=== PATIENT | male | born 1990 | race Caucasian/White ===

== ENCOUNTER 2016-06-22 13:20 | Observation (INO) | payer MEDICAID, OTHER ==
[~2016-06-22] VITALS: Ht 170.2 cm; Wt 64.0 kg
[2016-06-22] VITALS (15 sets, daily range): BP systolic 107–127; BP diastolic 44–80; PULSE 62–96; RESP 10–20; TEMP 98; Ht 170.2 cm; Wt 64.0 kg
--- NOTE | 2016-06-22 14:22 | ERA ---
ER Documentation Chief Complaint Date/Time DATE: 06/22/16 TIME: 14:21 Chief Complaint Left testicular pain HPI The patient is a 25-year-old male, presenting to the ER because of left testicular pain that began about 9 AM, associated with nausea, vomiting. He then masturbated around 11 AM hoping it would get better but it did not. He then went to the urgent care where he was treated with Rocephin IM for possible infection. He denies similar symptoms previously, headache, fever, chills, neck pain, chest pain, abdominal pain, diarrhea, constipation. He does not smoke nor drink Past medical/surgical history: None ROS All systems reviewed and are negative except as per history of present illness. Medications Home Meds No Active Prescriptions or Reported Meds Allergies Allergies: Coded Allergies: No Known Allergy (Unverified , 06/22/16) Physical Exam Vitals Vital Signs Date Time Temp Pulse Resp B/P Pulse Ox O2 Delivery O2 Flow Rate FiO2 06/22/16 17:00 98.0 60 20 115/69 100 Room Air 06/22/16 13:24 97.9 74 24 132/81 100 Physical Exam Const: No acute distress. Head: Atraumatic. Eyes: Normal Conjunctiva. ENT: Normal External Ears, Nose and Mouth. Neck: Full range of motion. No meningismus. Resp: Clear to auscultation bilaterally. Cardio: Regular rate and rhythm, no murmurs. Abd: Soft, non distended, normal bowel sounds, non tender. Skin: No petechiae or rashes. Back: No midline or flank tenderness. Ext: No cyanosis, or edema. Neur: Awake and alert. No focal deficit Psych: Normal Mood and Affect. Genitourinary: Left testicle is with mild to moderate tenderness, no palpable mass Result Diagram: 06/22/16 1635 06/22/16 1635 Results 24 hrs Laboratory Tests Test 06/22/16 16:35 White Blood Count 9.310^3/ul Red Blood Count 5.2710^6/ul Hemoglobin 14.3g/dl Hematocrit 44.7% Mean Corpuscular Volume 84.8fl Mean Corpuscular Hemoglobin 27.1pg Mean Corpuscular Hemoglobin Concent 32.0g/dl Red Cell Distribution Width 12.0% Platelet Count 92240^3/UL Mean Platelet Volume 9.6fl Neutrophils % 91.2% Lymphocytes % 6.5% Monocytes % 1.8% Eosinophils % 0.0% Basophils % 0.3% Nucleated Red Blood Cells % 0.0/100WBC Neutrophils # 8.510^3/ul Lymphocytes # 0.610^3/ul Monocytes # 0.210^3/ul Eosinophils # 0.010^3/ul Basophils # 0.010^3/ul Nucleated Red Blood Cells # 0.010^3/ul Prothrombin Time 14.4Sec Prothrombin Time Ratio 1.1 INR International Normalized Ratio 1.12 Activated Partial Thromboplast Time 33.8Sec Sodium Level 141mmol/L Potassium Level 3.7mmol/L Chloride Level 103mmol/L Carbon Dioxide Level 25mmol/L Anion Gap 17 Blood Urea Nitrogen 10mg/dl Creatinine 0.91mg/dl Glucose Level 99mg/dl Calcium Level 9.0mg/dl Current Medications Medications (Trade) Dose Ordered Sig/Prateek Route PRN Reason Start Time Stop Time Status Last Admin Dose Admin Sodium Chloride (NS) 1,000 ml @ 1,000 mls/hr Q1H ONCE IV 06/22/16 14:30 06/22/16 15:29 DC 06/22/16 14:38 Morphine Sulfate (morphine) 4 mg ONCE STAT IV 06/22/16 14:27 06/22/16 14:29 DC 06/22/16 14:37 Ondansetron HCl (Zofran Inj) 4 mg ONCE STAT IV 06/22/16 14:27 06/22/16 14:29 DC 06/22/16 14:37 Procedures/[place] [id number] Radiology Main Line: [phone] DIAGNOSTIC IMAGING REPORT Patient: SUSHILA FERRARI : 1990 Age: 25 Sex: M MR #: [id number] DOS: 06/22/16 0000 Ordering MD: SHUN SOLIZ MD Location: E/R Room/Bed: PROCEDURE: XR Chest. CLINICAL INDICATION: Preoperative. TECHNIQUE: Single frontal view. COMPARISON: None. FINDINGS: The lungs are clear. The heart size is normal. There is no pleural effusion. There is no pneumothorax. IMPRESSION: 1. Normal chest radiograph. RPTAT: QQ .Dileep Morales MD, MD Date Time Electronically viewed and signed by .Dileep Morales MD, MD on 06/22/2016 16:29 .R/ CC: SHUN SOLIZ MD [place] [id number] Radiology Main Line: [phone] DIAGNOSTIC IMAGING REPORT Patient: SUSHILA FERRARI : 1990 Age: 25 Sex: M MR #: [id number] DOS: 06/22/16 0000 Ordering MD: SHUN SOLIZ MD Location: E/R Room/Bed: PROCEDURE: Scrotal ultrasound CLINICAL INDICATION: Left scrotal pain. Evaluate for left portion. TECHNIQUE: Scrotal ultrasound was performed in multiple obliquities. Mckinnon scale and color imaging was performed. Images were reviewed on high resolution PACS monitors. COMPARISON: None available FINDINGS: The testes are normal in size and echogenicity. There is normal flow in the right testis. No arterial wave forms can be seen in the left testis compatible with suspected left testicular torsion. Venous waveforms are seen on the left. No testicular mass or cyst is identified. There is a mild to moderate left hydrocele. There is no evidence of right hydrocele.. There is a 7 mm right epididymal cyst. The left epididymis is within normal limits. There is no evidence for a varicocele. IMPRESSION: 1. No arterial flow identified in the left testis compatible with suspected left testicular torsion. 2. Small right epididymal cyst. 3. Small to moderate left hydrocele. Call report: A call report was made to Dr. Soliz at approximately 03:35 p.m. on 06/22/2016. RPTAT: KK .Julio Pike MD, MD Date Time Electronically viewed and signed by .Julio Pike MD, MD on 2016 15:39 .B/ CC: SHUN SOLIZ MD EKG: Read by emergency physician Rate/Rhythm: Normal Sinus Rhythm 68 beats/min QRS, ST, T-waves: No ST elevation, no T inversion Impression: EKG MEDICAL MAKING DECISION: The patient is a 25-year-old male, presenting with acute left testicular torsion. He went treated with 1 L normal saline for clinical dehydration, morphine 4 mg IV for pain, Zofran formalin IV for nausea with good response. Consultation: I discussed the person with the radiologist at 3:40 PM Consultation: I discussed the patient with the on-call urologist Dr. Croft at 3:50 PM who was made aware of the patient condition, the ultrasound finding. He is coming to do the emergent surgical intervention Critical Care: Time: 35 minutes excluding all billable procedures. Treatments/Evaluations: Close monitoring and treatment of unstable vital signs, cardiorespiratory, and neurologic status, while maintaining tight balance of fluid, respiratory, and cardiac interventions. Departure Diagnosis: Primary Impression: Left testicular torsion Condition: Stable Comments I discussed the findings with the patient. I discussed the patient with the on- call hospitalist at 4 PM who was made aware of the lab, the treatment, the patient condition and my discussion with the urologist. The patient is admitted to medical surgery bed at 4:10 PM The patient's blood pressure was elevated (>120/80) but appears stable without evidence of hypertension emergency or urgency. The patient was counseled about the risks of hypertension and urged to pursue outpatient monitoring and therapy within a week with their primary care physician. SHUN SOLIZ MD June 22, 2016 14:22
[2016-06-22] MEDS ORDERED: morphine 4 MG/ML VIAL IV STA (14:27)
[2016-06-22] MEDS ORDERED: ONDANSETRON 4 MG INJ IV STA (14:27)
[2016-06-22] MEDS ORDERED: SOD CHLORIDE 0.9% 1,000 ML IV ONE (14:30)
--- NOTE | 2016-06-22 15:39 | RADRPT ---
PROCEDURE: Scrotal ultrasound CLINICAL INDICATION: Left scrotal pain. Evaluate for left portion. TECHNIQUE: Scrotal ultrasound was performed in multiple obliquities. Mckinnon scale and color imaging was performed. Images were reviewed on high resolution PACS monitors. COMPARISON: None available FINDINGS: The testes are normal in size and echogenicity. There is normal flow in the right testis. No arter ial wave forms can be seen in the left testis compatible with suspected left testicular torsion. [place] ous waveforms are seen on the left. No testicular mass or cyst is identified. There is a mild to mo derate left hydrocele. There is no evidence of right hydrocele.. There is a 7 mm right epididyma l cyst. The left epididymis is within normal limits. There is no evidence for a varicocele. IMPRESSION: 1. No arterial flow identified in the left testis compatible with suspected left testicular torsion . 2. Small right epididymal cyst. 3. Small to moderate left hydrocele. Call report: A call report was made to Dr. Wright at approximately 03:35 p.m. on 06/22/2016. RPTAT: KK .Julio Pike MD, MD Date Time Electronically viewed and signed by .Julio Pike MD, MD on 06/22/2016 15:39 .B/
--- NOTE | 2016-06-22 16:29 | RADRPT ---
PROCEDURE: XR Chest. CLINICAL INDICATION: Preoperative. TECHNIQUE: Single frontal view. COMPARISON: None. FINDINGS: The lungs are clear. The heart size is normal. There is no pleural effusion. There is no pneumothorax. IMPRESSION: 1. Normal chest radiograph. RPTAT: QQ .Dileep Morales MD, Date Time Electronically viewed and signed by .Dileep Morales MD, on 06/22/2016 16:29 .R/
[2016-06-22 16:38] LABS: ADD SCAN DIFF NO
[2016-06-22 16:41] LABS: BASOPHILS % 0.3 % (0.0-2.0); HEMATOCRIT 44.7 % (42.0-52.0); HEMOGLOBIN 14.3 g/dl (14.0-18.0); LYMPHOCYTES # 0.6 10^3/ul (0.8-2.9); LYMPHOCYTES % 6.5 % (15.0-51.0); MEAN CORPUSCULAR HEMOGLOBIN 27.1 pg (29.0-33.0); MEAN CORPUSCULAR VOLUME 84.8 fl (82.0-101.0); MEAN PLATELET VOLUME 9.6 fl (7.4-10.4); MONOCYTE # 0.2 10^3/ul (0.3-0.9); MONOCYTES % 1.8 % (0.0-11.0); NEUTROPHIL # 8.5 10^3/ul (1.6-7.5); NEUTROPHILS % 91.2 % (39.0-77.0); PLATELET COUNT 196 10^3/UL (140-415); RED BLOOD COUNT 5.27 10^6/ul (4.70-6.10); WHITE BLOOD COUNT 9.3 10^3/ul (4.8-10.8)
[2016-06-22 16:55] LABS: INR 1.12; PROTIME 14.4 Sec (12.2-14.2); PT RATIO 1.1
[2016-06-22 16:56] LABS: PARTIAL THROMBOPLASTIN TIME 33.8 Sec (25.0-35.0)
[2016-06-22] MEDS ORDERED: PROPOFOL 20 ML ONE (17:11)
[2016-06-22] MEDS ORDERED: LIDOCAINE 2% (SDV) 5 ML INJ ONE (17:12)
[2016-06-22] MEDS ORDERED: BUPIVACAINE 0.5% (SDV) 30 ML INJ ONE (17:40)
[2016-06-22 17:45] LABS: CREATININE 0.91 mg/dl (0.61-1.24); POTASSIUM 3.7 mmol/L (3.5-5.1)
[2016-06-22] MEDS ORDERED: DEXAMETHASONE 4 MG/ML 1 ML INJ ONE (17:49)
[2016-06-22] MEDS ORDERED: ROCURONIUM 50 MG INJ ONE (17:50)
[2016-06-22] MEDS ORDERED: ONDANSETRON 4 MG INJ ONE (17:50)
[2016-06-22] MEDS ORDERED: HYDROmorphONE 1 MG/ML SYG IV PRN (18:30)
[2016-06-22] MEDS ORDERED: ACETAMINOPHEN 325 MG TAB PO PRN (18:30)
[2016-06-22] MEDS ORDERED: HYDROmorphONE (0.2 MG/ML) 10ML SYG IV PRN ×3 (18:30)
[2016-06-22] MEDS ORDERED: ONDANSETRON 4 MG INJ IV PRN ×2 (18:30)
[2016-06-22] MEDS ORDERED: FENTAnyl 50 MCG/ML VIAL IV PRN ×3 (18:30)
[2016-06-22] MEDS ORDERED: EPHEDrine SULFATE 50 MG/5 ML SYG IV PRN (18:30)
[2016-06-22] MEDS ORDERED: MEPERIDINE 25 MG INJ IV PRN (18:30)
[2016-06-22] MEDS ORDERED: HYDROCODONE/APAP (5/325) TAB PO PRN (18:30)
[2016-06-22] MEDS ORDERED: morphine 2 MG INJ IV PRN (18:30)
[2016-06-22] MEDS ORDERED: LABETALOL HCL 20MG INJ IV PRN (18:30)
[2016-06-22] MEDS ORDERED: hydrALAzine 20 MG INJ IV PRN (18:30)
[2016-06-22] MEDS ORDERED: DOCUSATE SODIUM 100 MG CAP PO PRN (18:30)
[2016-06-22] MEDS ORDERED: DIPHENHYDRAMINE 50 MG INJ IV PRN (18:30)
[2016-06-22] MEDS ORDERED: NACL 0.9% 3 ML SYG IV SCH (18:30)
--- NOTE | 2016-06-22 19:32 | HP ---
DATE OF ADMISSION: 06/22/2016 TIME OF EVALUATION: 1800 hours. REASON FOR ADMISSION: Left testicular pain. CONSULTATIONS: Dr. Croft, Urology. HISTORY OF PRESENT ILLNESS: This is a 25-year-old male who denied any significant past medical history who came to the emergency room because of left testicular pain that began about 9:00 a.m. on 06/22/2016 with associated nausea and vomiting. The patient verbalized that he tried masturbating at 11 a.m., hoping that it could get better, but the pain was not getting better. He went to a local urgent care, where he was treated with Rocephin IM for possible infection. The patient was not getting better, hence he came to the emergency room. The patient denied any prior similar episodes. The patient denied any fevers or chills. He denied any penile secretions or injuries. In the emergency room, the patient underwent a testicular ultrasound that showed no arterial flow identified in the left testis compatible with suspected left testicular torsion, small right epididymal cyst and small to moderate left hydrocele. The patient was admitted to inpatient setting and urology consult was called. The patient underwent a left testicular surgery for correction of his left testicular torsion with no immediate postoperative complications. . PAST MEDICAL HISTORY: Denies. PAST SURGICAL HISTORY: Denies. HOME MEDICATIONS: None. ALLERGIES: NO KNOWN DRUG ALLERGIES. SOCIAL HISTORY: The patient denied any history of tobacco or alcohol use. Smokes marijuana in between. The patient works as a porn star. REVIEW OF SYSTEMS: Negative other than what is mentioned in history of present illness. PHYSICAL EXAMINATION: VITAL SIGNS: Temperature 98.0, pulse rate 60, respiratory rate 20, blood pressure 115/60, oxygen saturation was 100% on room air. GENERAL: This is well-built, well-nourished male patient lying in bed in no apparent distress. HEENT: Normocephalic and atraumatic. Conjunctivae clear. ENT: Nasal septum is midline. Oral mucosa is dry. NECK: Supple. No JVD noticed. RESPIRATORY: Bilaterally clear to auscultation. No adventitious breath sounds heard. No use of accessory muscles of respiration. CARDIAC: Regular rhythm and rate. No murmurs. GASTROINTESTINAL: Abdomen soft, nontender and nondistended. Bowel sounds positive in all 4 quadrants. GENITOURINARY: Circumcised penis. Left scrotal dressing with a scrotal support in place. EXTREMITIES: No cyanosis, no clubbing, no edema. Peripheral pulses palpable. NEUROLOGIC: The patient is awake, alert and oriented. Cranial nerves are grossly intact. LABORATORY AND DIAGNOSTIC DATA: WBC 9.3, hemoglobin 14.3, hematocrit 44.7, platelet count 196. Sodium 141, potassium 3.7, chloride 103, carbon dioxide 20 , anion gap 17, BUN 10, creatinine 0.91, glucose 99, calcium 9.0. PT 14.4, INR 1.12, APTT 33.8. Chest x-ray, normal chest radiograph. Testicular ultrasound. No arterial flow identified in the left testis compatible with suspected left testicular torsion. Small right epididymal cyst. Small to moderate left hydrocele. IMPRESSION: This is a 25-year-old male who came to the emergency room with a chief complaint of left testicular pain, who was found to have evidence of left testicular torsion, who underwent an emergent surgical repair with revision of testicular torsion, who will be admitted here for further treatment and evaluation. ASSESSMENT AND PLAN: 1. Left testicular torsion. Status post surgical repair. Continue pain control. Dressing changes as per urology. The patient will be resumed on a diet. Plan. The patient will be admitted to inpatient medical/surgical floor. The patient will be started on DVT prophylaxis. Chemical DVT prophylaxis will be avoided because of recent surgery. Activities will be as tolerated. The rest of the patient's management will be based on clinical course. The patient most probably requires at least 1 midnight's stay for better pain control before the patient can be discharged home. The case and management of this patient was fully discussed with Dr. Mendez. MARRY MENDEZ MD, AM/ZENY Conf#: [id number] DID#: [id number] MTDD
[2016-06-22] MEDS: FAMOTIDINE 20 MG TAB PO SCH (22:24)
--- NOTE | 2016-06-23 00:54 | OPR ---
DATE OF OPERATION: 06/22/2016 PREOPERATIVE DIAGNOSIS: Left testicular torsion. POSTOPERATIVE DIAGNOSIS: Left testicular torsion. OPERATION PERFORMED: Detorsion, left testicle with bilateral testicular fixation. SURGEON: Chava Croft MD OPERATIVE FINDINGS: The patient had a very long left spermatic cord. It appeared that he had parti ally detorsed the testicle, but it was still bluish. There was significant hydrocele around the chun ica. Right testicle is normal. DESCRIPTION OF PROCEDURE: Under general anesthesia, the patient was prepped and draped in the supin e position. A midline scrotal incision was made, carried down through skin, subcutaneous tissue. T he median raphe was then developed. The left scrotum was approached first. The layers of the tunic a were opened, and a large amount of hydrocele fluid was evacuated. The testicle was then detorsed. Appendix testis was then excised. Then 3-0 Prolene was placed at the superior and inferior pole a nd sutured on the medial side and sutured to the median raphe. Testicle was then brought back into its anatomical position. On the right side, a similar procedure was performed. The tunica was open ed. Two sutures of 3-0 Prolene were placed on the inferior and superior pole and sutured to the med chi raphe so that the testicle was fixed without any chance of further torsion. At this point, the dartos muscle was closed in a single layer of 4-0 Vicryl. Skin was closed with 5-0 chromic subcutic ular. Then 10 mL of 0.5% Marcaine was placed in each cord and into the subcutaneous tissue. The pa tient was awakened after a sterile dressing was placed and brought to the recovery room in stable co ndition. Dictated By: CHAVA CROFT MD RS/ZENY Conf#: [id number] DID#: [id number]
[2016-06-23 06:05] LABS: ADD SCAN DIFF NO
[2016-06-23 06:18] LABS: BASOPHILS % 0.1 % (0.0-2.0); HEMATOCRIT 42.8 % (42.0-52.0); HEMOGLOBIN 14.1 g/dl (14.0-18.0); LYMPHOCYTES # 1.1 10^3/ul (0.8-2.9); LYMPHOCYTES % 10.3 % (15.0-51.0); MEAN CORPUSCULAR HEMOGLOBIN 27.5 pg (29.0-33.0); MEAN CORPUSCULAR HGB CONC 32.9 g/dl (32.0-37.0); MEAN CORPUSCULAR VOLUME 83.4 fl (82.0-101.0); MEAN PLATELET VOLUME 9.7 fl (7.4-10.4); MONOCYTE # 0.5 10^3/ul (0.3-0.9); MONOCYTES % 4.4 % (0.0-11.0); NEUTROPHIL # 9.1 10^3/ul (1.6-7.5); NEUTROPHILS % 84.9 % (39.0-77.0); PLATELET COUNT 222 10^3/UL (140-415); RED BLOOD COUNT 5.13 10^6/ul (4.70-6.10); RED CELL DISTRIBUTION WIDTH 12.1 % (11.5-14.5); WHITE BLOOD COUNT 10.7 10^3/ul (4.8-10.8)
[2016-06-23 06:30] LABS: POTASSIUM 4.2 mmol/L (3.5-5.1)
[2016-06-23 06:33] LABS: CREATININE 0.97 mg/dl (0.61-1.24)
[2016-06-23 06:34] LABS: CALCIUM 8.7 mg/dl (8.4-10.2)
[2016-06-23 07:50] VITALS: BP 115/67; RESP 20
[2016-06-23 08:06] LABS: MAGNESIUM 1.9 mg/dl (1.7-2.5); PHOSPHORUS 4.8 mg/dl (2.5-4.9)
[2016-06-23] MEDS: FAMOTIDINE 20 MG TAB PO SCH (09:03)
--- NOTE | 2016-06-23 11:20 | PDOCDIS ---
Discharge Instructions DIAGNOSIS Discharge Diagnosis: Left testicular torsion. Status post detorsion. CONDITION Patient Condition: Stable HOME CARE INSTRUCTIONS: Diet Instructions: Regular ACTIVITY: Activity Restrictions: Slowly Increase Activity Rest between Activity No Sexual Activity FOLLOW UP/APPOINTMENTS Appointments Flavio Croft MD Specialty: Urology Office Address: [id number] [place] [id number] Office OTHER ORDERS: Other Orders: 1. Take pain medications as needed. 2. Regular diet as tolerated. 3. May shower in 2 days. Avoid sexual activity until cleared by the urologist. 4. Please call Dr. Croft for an appointment and see him within 1 week. 5. Use ice pack to the scrotum for pain relief. MARRY GUTIERREZ NP June 23, 2016 11:20
[2016-06-23] MEDS ORDERED: HYDR-3498 PO (11:22)
--- NOTE | 2016-06-23 12:04 | DS ---
DATE OF ADMISSION: 06/22/2016 DATE OF DISCHARGE: 06/23/2016 FINAL DIAGNOSIS: Left testicular torsion. Status post detorsion of the left testicle with bilateral testicular fixation. GLOBAL COORDINATOR: Dr. Flavio Croft, Urology. HOSPITAL COURSE: This is a 25-year-old male who denied any significant past medical history, who came to the emergency room because of left testicular pain that began at about 9:00 a.m. on 06/22/2016, with associated nausea and vomiting. The patient verbalized that he tried masturbating with no relieve of his pain. He went to a local urgent care where he was treated with intramuscular Rocephin for possible infection. He was not getting better and he came to the emergency room at [facility]. The patient underwent a testicular ultrasound that showed no arterial flow in the left testis, compatible with suspected left testicular torsion and a small right epididymal cyst and a small to moderate left hydrocele. Provided the patient's history of present illness and the diagnostic findings, a clinical decision was made to admit the patient in inpatient setting. A urology consult was called by the ER physician. The patient was emergently taken to the OR and the patient underwent a detorsion of the left testicle with bilateral testicular fixation. The patient had no immediate postoperative complications. The patient was transferred to medical/surgical floor. The patient was started on a regular diet. The patient was provided with adequate pain control. He was maintained on antiemetics for any nausea or vomiting. The patient progressed well postoperatively. The patient needed minimal analgesics. The patient was cleared by urology to be discharged home. The patient has no other medical problems and the patient is a healthy individual. DISCHARGE DISPOSITION/PLAN: The patient will be discharged home today. The patient was instructed to take pain medications as needed. The patient was instructed to take a regular diet as tolerated. He was instructed that he may shower in 2 days, but avoid any sexual activity until cleared by the urologist. The patient was instructed to call Dr. Croft for an appointment and see him within 1 week. The patient was instructed to use ice pack to the scrotum for pain relief. The patient verbalized understanding of his discharge instructions. CONDITION AT DISCHARGE: Stable. DISCHARGE MEDICATIONS: [place] 5/325 one tablet p.o. q.6h. p.r.n. pain (#14 tablets). PERTINENT LABORATORY AND DIAGNOSTIC DATA AND PROCEDURES: 1. Detorsion of the left testicle with bilateral testicular fixation on 2016. 2. Testicular ultrasound on 06/22/2016. No arterial flow identified in the left testis, compatible with suspected left testicular torsion. Small right epididymal cyst. Small to moderate left hydrocele. 3. Chest x-ray. Normal chest radiograph. 4. Latest CBC: WBC 10.7, hemoglobin 14.1, hematocrit 42.8, platelet count 222. 5. Latest BMP: Sodium 138, potassium 4.2, chloride 107, carbon dioxide 25, anion gap 15, BUN 11, creatinine 0.97, glucose 109, calcium 8.7. Phosphorus 4.8 , magnesium 1.9. 6. HIV-1 and 2 antibody negative. At this time, I would like to thank Dr. Croft for seeing the patient, doing the necessary procedures, and providing clinical recommendations. The case and management of this patient was fully discussed with Dr. Mendez. Approximately 35 minutes was spent on coordinating the discharge on this patient. MARRY MENDEZ MD, AM/ZENY Conf#: [id number] DID#: [id number] MTDD
== END 2016-06-23 13:45 | disposition home or self-care (01) ==
LOC: E/R 13:20 → SDS 17:07 → MS2 18:36 → SDS 18:36 → MS2 19:40
PROVIDERS: ADMIT Urology; ATTEND Urology
DX: N44.00 Torsion of testis, unspecified (principal)
CPT/HCPCS: 36415; 54600; 71010; 76870; 80048; 83735; 84100; 85025; 85610; 85730; 86703; 93005; 96361; 96374; 96375; J1100; J2175; J2270; J2405; J3010; J7030; Z7500; Z7502; Z7512; Z7610; G0378